=== PATIENT | female | born 1985 | race African-American/Black ===

== ENCOUNTER 2020-03-08 18:51 | Emergency (ER) | payer OTHER, SELFPAY ==
[2020-03-08 19:20] LABS: #Basophils 0.1 thou/uL (0.0-0.2); #Eosinphils 0.1 thou/uL (0.0-0.7); #Lymphocytes 1.7 thou/uL (1.20-3.40); #Monocytes 0.5 thou/uL (0.11-0.59); %Basophils 1.4 % (0.0-1.0); %Eosinophils 2.4 % (0.0-10.0); %Lymphocytes 31.7 % (21.0-51.0); %Monocytes 9.2 % (0.0-10.0); %Neutrophils 55.3 % (42.0-75.0); Hemoglobin 13.2 g/dL (12.0-16.0); Mean Corpuscular HGB CONC 33.5 g/dL (32.0-36.0); Mean Corpuscular Hemoglobin 30.3 pg (27.0-31.0); Mean Corpuscular Volume 90.3 fL (78.0-98.0); Mean Platelet Volume 8.7 fL (7.4-10.4); Platelet Count 279 thou/uL (130-400); RBC Distribution Width 14.1 % (11.5-14.5); Red Blood Cell (RBC) Count 4.35 mill/uL (4.20-5.40); White Blood Cell (WBC) Count 5.5 thou/uL (4.8-10.8)
[2020-03-08 19:42] LABS: ALT (SGPT) 8 U/L (8-55); AST (SGOT) 11 U/L (5-34); Alkaline Phosphatase 37 U/L (40-110); Anion Gap 10 mmol/L (10-20); BUN (Urea Nitrogen) 11 mg/dL (7.0-18.7); Bilirubin, Total 0.2 mg/dL (0.2-1.2); Calc. Creatinine Clearance 0 mL/min (70-130); Calcium 8.8 mg/dL (7.8-10.44); Carbon Dioxide 26 mmol/L (22-29); Chloride 106 mmol/L (98-107); Estimated GFR-MDRD 62; Globulin 3.2 g/dL (2.4-3.5); Glucose 90 mg/dL (70-105); Potassium 4.1 mmol/L (3.5-5.1); Protein, Total 7.2 g/dL (6.0-8.3); Sodium 138 mmol/L (136-145)
[2020-03-08] MEDS ORDERED: Metoclopramide HCl 10 MG/2 ML VIAL ONE (20:19)
[2020-03-08] MEDS ORDERED: diphenhydrAMINE 12.5 MG/5 ML UDCUP ONE (20:19)
[2020-03-08] MEDS ORDERED: diphenhydrAMINE 50 MG/ML VIAL ONE (20:21)
--- NOTE | 2020-03-08 21:28 | CT ---
CT BRAIN WITHOUT CONTRAST: 03/08/20 HISTORY: Lightheadedness and vision changes. COMPARISON: None. FINDINGS: No acute hemorrhage or infarct. No midline shift or mass effect. Ventricular size and extra-axial CSF spaces are normal. The calvarium is intact. The paranasal sinuses and mastoids are clear. IMPRESSION: 1. No acute intracranial abnormality. 2. Inspissated debris within the right posterior ethmoid sinus. POS: HOME
[2020-03-08] MEDS ORDERED: Ketorolac Tromethamine 30 MG/ML VIAL ONE (21:54)
== END 2020-03-08 22:15 | disposition home or self-care (01) ==
LOC: ERS 18:51
DX: R42 Dizziness and giddiness (principal); R51 Headache; D64.9 Anemia, unspecified
CPT/HCPCS: 36415; 70450; 80053; 84484; 85025; 93005; 96361; 96374; 96375; J1200; J1885; J2765; Q0163